=== PATIENT | female | born 1980 | race Caucasian/White ===

== ENCOUNTER 2019-06-19 05:24 | Emergency (ER) | payer OTHER, SELFPAY | END 2019-06-19 06:06 | disposition home or self-care (01) | LOC: BURERS 05:24 | DX: K59.00 Constipation, unspecified (principal); G43.909 Migraine, unspecified, not intractable, without status migrainosus; F41.9 Anxiety disorder, unspecified; F31.9 Bipolar disorder, unspecified; F17.210 Nicotine dependence, cigarettes, uncomplicated; Z79.899 Other long term (current) drug therapy | CPT/HCPCS: 99283 ==

== ENCOUNTER 2019-09-26 21:52 | Emergency (ER) | payer MEDICARE, SELFPAY | END 2019-09-26 22:26 | disposition home or self-care (01) | LOC: BURERS 21:52 | DX: G62.9 Polyneuropathy, unspecified (principal); G43.909 Migraine, unspecified, not intractable, without status migrainosus; F41.9 Anxiety disorder, unspecified; F31.9 Bipolar disorder, unspecified; F17.210 Nicotine dependence, cigarettes, uncomplicated; Z79.899 Other long term (current) drug therapy | CPT/HCPCS: 99281 ==

== ENCOUNTER 2019-12-27 15:02 | Emergency (ER) | payer MEDICARE, OTHER ==
--- NOTE | 2019-12-27 17:41 | RAD ---
CHEST TWO VIEWS: 12/27/19 The heart is normal in size and the lungs are clear. No infiltrate or effusion was seen. The mediasti num appears normal. IMPRESSION: No acute thoracic findings. POS: HOME
[2019-12-28 12:07] LABS: SARS-CoV-2 MS2 Positive; SARS-CoV-2 N Gene Negative; SARS-CoV-2 S Gene Negative; SARS-CoV-2 orf1ab Negative
== END 2019-12-27 17:55 | disposition home or self-care (01) ==
LOC: BURERS 15:02
DX: B34.9 Viral infection, unspecified (principal); G43.909 Migraine, unspecified, not intractable, without status migrainosus; F31.9 Bipolar disorder, unspecified; F41.9 Anxiety disorder, unspecified; F17.210 Nicotine dependence, cigarettes, uncomplicated; Z79.899 Other long term (current) drug therapy; Z20.828 Contact with and (suspected) exposure to other viral communicable diseases
CPT/HCPCS: 71046; 87635; 87804; U0003

== ENCOUNTER 2024-07-21 14:06 | Emergency (ER) | payer OTHER | END 2024-07-21 15:18 | disposition home or self-care (01) | LOC: BURERS 14:06 | DX: B34.9 Viral infection, unspecified (principal); J01.90 Acute sinusitis, unspecified; F17.210 Nicotine dependence, cigarettes, uncomplicated | CPT/HCPCS: 96374; 96375 ==

== ENCOUNTER 2025-06-15 19:08 | Emergency (ER) | payer MEDICARE ==
[2025-06-15] MEDS ORDERED: Dexamethasone 10 MG/ML VIAL ONE (19:38)
[2025-06-15] MEDS ORDERED: Ketorolac Tromethamine 30 MG (1 mL) VIAL ONE (19:39)
== END 2025-06-15 20:06 | disposition home or self-care (01) ==
LOC: BURERS 19:08
DX: M25.552 Pain in left hip (principal); M25.551 Pain in right hip; F17.290 Nicotine dependence, other tobacco product, uncomplicated
CPT/HCPCS: 96372; 99283; J1100; J1885; J2270; Q0162

== ENCOUNTER 2025-07-22 12:35 | Emergency (ER) | payer MEDICARE | END 2025-07-22 13:43 | disposition home or self-care (01) | LOC: BURERS 12:35 | DX: J06.9 Acute upper respiratory infection, unspecified (principal); B97.4 Respiratory syncytial virus as the cause of diseases classified elsewhere; F17.290 Nicotine dependence, other tobacco product, uncomplicated; Z71.6 Tobacco abuse counseling | CPT/HCPCS: 87428; 99283 ==